=== PATIENT | female | born 1990 | race Caucasian/White ===

== ENCOUNTER 2020-01-30 16:22 | Observation (INO) | payer MEDICAID ==
[~2020-01-30] VITALS: Ht 147.3 cm; Wt 81.2 kg
[2020-01-30 17:35] LABS: BILIRUBIN,URINE NEGATIVE (NEGATIVE); BLOOD, URINE NEGATIVE (NEGATIVE); COLOR,URINE YELLOW (YELLOW); GLUCOSE,URINE NEGATIVE (NEGATIVE); KETONES,URINE NEGATIVE (NEGATIVE); LEUKOCYTE ESTERASE ,URINE NEGATIVE (NEGATIVE); NITRITE, URINE NEGATIVE (NEGATIVE); PH,URINE 6.5 (5.0-8.0); PROTEIN URINE NEGATIVE (NEGATIVE)
[2020-01-30 17:43] LABS: CLARITY/URINE SLIGHTLY HAZY (CLEAR)
== END 2020-01-30 18:00 | disposition home or self-care (01) ==
LOC: SPU 16:22
PROVIDERS: ADMIT Obstetrics & Gynecology; ATTEND Obstetrics & Gynecology
DX: O26.893 Other specified pregnancy related conditions, third trimester (principal); R51.9 Headache, unspecified; H55.89 Other irregular eye movements; Z3A.35 35 weeks gestation of pregnancy
CPT/HCPCS: 81002; 81003; G0378

== ENCOUNTER 2020-02-08 00:20 | Observation (INO) | payer MEDICAID, SELFPAY ==
[~2020-02-08] VITALS: Ht 147.3 cm; Wt 80.3 kg
[2020-02-08] MEDS ORDERED: TERBUTALINE SULFATE 1 MG/ML VIAL SUBCUT PRN (01:45)
[2020-02-08] MEDS ORDERED: MORPHINE SULFATE 10 MG/ML VIAL IVP PRN (01:45)
[2020-02-08] MEDS: LR 1,000 ML IV SCH ×2 (02:00→07:00)
[2020-02-08] MEDS ORDERED: BETAMET ACET/BETAMET NA PH 30 MG/5 ML VIAL IM ONE ×2 (08:30→09:14)
[2020-02-08] MEDS ORDERED: ACETAMINOPHEN 500 MG TABLET ONE (10:08)
[2020-02-08] MEDS ORDERED: ACETAMINOPHEN 500 MG TABLET PO PRN (10:15)
[2020-02-08] MEDS ORDERED: TEMAZEPAM 15 MG CAPSULE PO PRN (21:00)
[2020-02-09] MEDS: LR 1,000 ML IV SCH (01:17)
[2020-02-09] MEDS ORDERED: BETAMET ACET/BETAMET NA PH 30 MG/5 ML VIAL IM ONE (09:30)
== END 2020-02-09 09:30 | disposition home or self-care (01) ==
LOC: SPU 00:20
PROVIDERS: ADMIT Obstetrics & Gynecology; ATTEND Obstetrics & Gynecology
DX: O62.9 Abnormality of forces of labor, unspecified (principal); Z20.828 Contact with and (suspected) exposure to other viral communicable diseases; O99.513 Diseases of the respiratory system complicating pregnancy, third trimester; J45.909 Unspecified asthma, uncomplicated; O99.343 Other mental disorders complicating pregnancy, third trimester; F41.9 Anxiety disorder, unspecified; Z30.2 Encounter for sterilization; Z87.74 Personal history of (corrected) congenital malformations of heart and circulatory system; Z87.59 Personal history of other complications of pregnancy, childbirth and the puerperium; Z3A.36 36 weeks gestation of pregnancy
CPT/HCPCS: 59025; 81002; 96360; 96361 ×2; 96372 ×2; G0378; J0702; J7120 ×2; U0003; J3105

== ENCOUNTER 2020-02-11 04:35 | Inpatient (IN) | payer MEDICAID, SELFPAY ==
[~2020-02-11] VITALS: Ht 148.6 cm; Wt 80.7 kg
[2020-02-11] MEDS ORDERED: CEFAZOLIN 2 GM IVPB PREMIX 50 ML IV ONE (05:00)
[2020-02-11] MEDS ORDERED: LR 1,000 ML IV SCH ×2 (05:00→08:45)
[2020-02-11 05:02] VITALS: BP_SYST 114
[2020-02-11 07:18] LABS: BILIRUBIN,URINE NEGATIVE (NEGATIVE); BLOOD, URINE NEGATIVE (NEGATIVE); CLARITY/URINE CLEAR (CLEAR); COLOR,URINE YELLOW (YELLOW); GLUCOSE,URINE NEGATIVE (NEGATIVE); KETONES,URINE NEGATIVE (NEGATIVE); LEUKOCYTE ESTERASE ,URINE NEGATIVE (NEGATIVE); NITRITE, URINE NEGATIVE (NEGATIVE); PH,URINE 6.5 (5.0-8.0); PROTEIN URINE NEGATIVE (NEGATIVE); UROBILINOGEN,URINE 0.2 (0.2-1.0)
[2020-02-11 07:40] LABS: CALCIUM 8.5 mg/dL (8.4-11.0); CREATININE 0.47 mg/dL (0.55-1.30); POTASSIUM 3.9 mmol/L (3.5-5.1)
[2020-02-11 07:45] LABS: ALBUMIN 2.5 g/dL (3.4-4.8); TOTAL BILIRUBIN 0.2 mg/dL (0.0-1.0)
[2020-02-11 07:46] LABS: BASOPHILS % (AUTO) 0.2 % (0.0-2.0); EOSINOPHILS % (AUTO) 0.5 % (0.0-4.0); HEMATOCRIT 29.2 % (36-48); HEMOGLOBIN 9.7 g/dL (12.0-16.0); LYMPHOCYTES # (AUTO) 1.4 K/uL (1.0-5.5); LYMPHOCYTES % (AUTO) 19.5 % (20.5-51.5); MEAN CORPUSCULAR HEMOGLOBIN 27 pg (27-31); MEAN CORPUSCULAR HGB CONC 33 % (32-36); MEAN CORPUSCULAR VOLUME 82 fL (79.0-98.0); MONOCYTES # (AUTO) 0.7 K/uL (0.0-1.0); NEUTROPHILS # (AUTO) 4.9 K/uL (1.8-7.7); NEUTROPHILS % (AUTO) 69.8 % (40.0-70.0); PLATELET COUNT (AUTO) 194 K/uL (130-430); RED BLOOD CELL COUNT(AUTO) 3.56 MIL/uL (4.2-6.2); RED CELL DISTRIBUTION WIDTH 14.1 % (9.0-15.0); WHITE BLOOD COUNT (AUTO) 7.1 K/uL (4.8-10.8)
[2020-02-11] MEDS ORDERED: LR 1,000 ML IV.SOLN IV ONE (08:25)
[2020-02-11] MEDS ORDERED: OXYTOCIN 10 UNIT/ML VIAL IV ONE (08:25)
[2020-02-11] MEDS ORDERED: NS IRRIG SOLN 1000 ML IR ONE (08:25)
[2020-02-11] MEDS ORDERED: ONDANSETRON HCL 4 MG/2 ML VIAL IVP ONE (08:25)
[2020-02-11] MEDS ORDERED: MIDAZOLAM HCL 5 MG/5 ML VIAL IVP ONE (08:25)
[2020-02-11] MEDS ORDERED: KETOROLAC TROMETHAMINE 30 MG VIAL IVP ONE (08:25)
[2020-02-11] MEDS ORDERED: METOCLOPRAMIDE HCL 10 MG/2 ML VIAL IVP ONE (08:25)
[2020-02-11] MEDS ORDERED: ANUSOL 1 EA SUPP.RECT (PREPARATION H) RC PRN (08:45)
[2020-02-11] MEDS ORDERED: OXYTOCIN/0.9 % SODIUM CHLORIDE 1,000 ML IV ONE (08:45)
[2020-02-11] MEDS ORDERED: OXYCODONE/ACETAMINOPHEN 5-325 TABLET PO PRN (08:45)
[2020-02-11] MEDS ORDERED: TEMAZEPAM 15 MG CAPSULE PO PRN (08:45)
[2020-02-11] MEDS ORDERED: DIPH-TET-PERTUS Vaccine 0.5 ML VIAL (ADACEL) I.M. PRN (08:45)
[2020-02-11] MEDS ORDERED: HYDROcodone/ACETAMIN 5-325 MG TAB (NORCO/ VICODIN) PO PRN (08:45)
[2020-02-11] MEDS ORDERED: MEASLES,MUMPS&RUBELLA VACC/PF 12500 UNIT/0.5 ML VIAL SUBQ PRN (08:45)
[2020-02-11] MEDS ORDERED: SENNOSIDES/DOCUSATE SODIUM 1 TAB TABLET(SENOKOT-S) PO PRN (08:45)
[2020-02-11] MEDS ORDERED: BISACODYL 10 MG/SUPPOSITORY RC PRN (08:45)
[2020-02-11] MEDS ORDERED: LANOLIN 7 GM OINT. TP PRN (08:45)
[2020-02-11] MEDS ORDERED: RHO(D) IMMUNE GLOBULIN/MALTOSE 1500 UNITS/1.3 ML (WINHRO) IM PRN (08:45)
[2020-02-11] MEDS ORDERED: ONDANSETRON HCL 4 MG/2 ML VIAL IVP PRN (09:00)
[2020-02-11] MEDS ORDERED: KETOROLAC TROMETHAMINE 60 MG/2 ML VIAL IM PRN (09:00)
[2020-02-11 09:31] VITALS: BP_SYST 107
[2020-02-11] MEDS: DIPHENHYDRAMINE INJ 50 MG/ML VIAL IVP PRN ×2 (11:08→22:11)
[2020-02-11] MEDS ORDERED: DIPHENHYDRAMINE INJ 50 MG/ML VIAL ONE (13:02)
[2020-02-12] MEDS: IBUPROFEN 600 MG TABLET PO SCH ×4 (00:19→17:51)
[2020-02-12] MEDS: OXYCODONE/ACETAMINOPHEN 5-325 TABLET PO PRN ×4 (03:02→22:00)
[2020-02-12] MEDS: DOCUSATE SODIUM 100 MG CAPSULE PO PRN ×2 (03:02→22:01)
[2020-02-12] MEDS: SIMETHICONE 80 MG TAB.CHEW PO PRN ×2 (03:02→22:01)
[2020-02-12 07:08] LABS: BASOPHILS % (AUTO) 0.2 % (0.0-2.0); EOSINOPHILS % (AUTO) 0.3 % (0.0-4.0); LYMPHOCYTES # (AUTO) 1.5 K/uL (1.0-5.5); MEAN CORPUSCULAR HEMOGLOBIN 27 pg (27-31); MEAN CORPUSCULAR HGB CONC 33 % (32-36); MEAN CORPUSCULAR VOLUME 82 fL (79.0-98.0); MONOCYTES # (AUTO) 0.9 K/uL (0.0-1.0); MONOCYTES % (AUTO) 9.4 % (1.7-9.3); NEUTROPHILS # (AUTO) 6.9 K/uL (1.8-7.7); NEUTROPHILS % (AUTO) 74.1 % (40.0-70.0); PLATELET COUNT (AUTO) 168 K/uL (130-430); RED BLOOD CELL COUNT(AUTO) 3.29 MIL/uL (4.2-6.2); RED CELL DISTRIBUTION WIDTH 14.1 % (9.0-15.0); WHITE BLOOD COUNT (AUTO) 9.4 K/uL (4.8-10.8)
[2020-02-13] MEDS: IBUPROFEN 600 MG TABLET PO SCH ×3 (00:07→11:54)
[2020-02-13] MEDS: OXYCODONE/ACETAMINOPHEN 5-325 TABLET PO PRN (03:59)
[2020-02-13] MEDS: SIMETHICONE 80 MG TAB.CHEW PO PRN (04:00)
[2020-02-14 18:10] LABS: FTA-Ab (T PALLIDUM) Non Reactive (Non Reactive)
== END 2020-02-13 13:30 | disposition home or self-care (01) | DRG 540 ==
LOC: OBSVTOIN 04:35 → SPU 04:35
PROVIDERS: ADMIT Obstetrics & Gynecology; ATTEND Obstetrics & Gynecology
PROC: 10D00Z1 Extraction of Products of Conception, Low, Open Approach (ICD-10-PCS; principal; 2020-02-11 08:00)
DX: O99.344 Other mental disorders complicating childbirth (principal); O34.211 Maternal care for low transverse scar from previous cesarean delivery; O99.52 Diseases of the respiratory system complicating childbirth; O60.13X0 Preterm labor second trimester with preterm delivery third trimester, not applicable or unspecified; O99.214 Obesity complicating childbirth; F41.9 Anxiety disorder, unspecified; J45.909 Unspecified asthma, uncomplicated; E66.9 Obesity, unspecified; Z37.0 Single live birth; Z3A.36 36 weeks gestation of pregnancy; Z83.3 Family history of diabetes mellitus
CPT/HCPCS: 36415; 80053; 81003; 85025; 86592; 86780; 86886; 86900; 86901; 94760; J0690; J1200; J1885; J2250; J2405; J2590; J2765; J7120

== ENCOUNTER 2020-10-06 01:57 | Emergency (ER) | payer OTHER, SELFPAY ==
[~2020-10-06] VITALS: Ht 149.9 cm; Wt 72.6 kg
[2020-10-06 02:00] VITALS: BP_SYST 124
--- NOTE | 2020-10-06 02:20 | NUR ---
Pt walked in c/o allergic reaction. She reports being seen earlier at [facility] where she was given medications and discharged. She reports the hives coming back and starting to go up towards her face again. She denies any new exposures, foods, medications, lotions, etc. Denies any SOB, CP.
--- NOTE | 2020-10-06 02:20 | NUR ---
Placed in room 4 . Placed on monitor worker, blood pressure machine and pulse oximeter. To gown for exam. Side rails up. Report given to CHRISTOPHER SMITH.
[2020-10-06] MEDS ORDERED: PROCHLORPERAZINE EDISYLATE 10 MG/2 ML VIAL IVP ONE (02:45)
[2020-10-06] MEDS ORDERED: EPINEPHrine 1 MG/ML VIAL IM ONE (02:45)
[2020-10-06] MEDS ORDERED: DIPHENHYDRAMINE INJ 50 MG/ML VIAL IVP ONE (02:45)
[2020-10-06] MEDS ORDERED: NACL 0.9% 1,000 ML IV ONE (02:45)
[2020-10-06] MEDS ORDERED: FAMOTIDINE PF 20 MG/2 ML VIAL IVP ONE (02:45)
[2020-10-06 02:46] LABS: BASOPHILS % (AUTO) 0.1 % (0.0-2.0); HEMATOCRIT 37.8 % (36-48); HEMOGLOBIN 12.6 g/dL (12.0-16.0); LYMPHOCYTES # (AUTO) 0.7 K/uL (1.0-5.5); LYMPHOCYTES % (AUTO) 8.7 % (20.5-51.5); MEAN CORPUSCULAR HEMOGLOBIN 28 pg (27-31); MEAN CORPUSCULAR HGB CONC 33 % (32-36); MEAN CORPUSCULAR VOLUME 84 fL (79.0-98.0); MONOCYTES # (AUTO) 0.3 K/uL (0.0-1.0); MONOCYTES % (AUTO) 3.1 % (1.7-9.3); NEUTROPHILS # (AUTO) 7.2 K/uL (1.8-7.7); NEUTROPHILS % (AUTO) 88.1 % (40.0-70.0); PLATELET COUNT (AUTO) 241 K/uL (130-430); RED BLOOD CELL COUNT(AUTO) 4.53 MIL/uL (4.2-6.2); RED CELL DISTRIBUTION WIDTH 13.1 % (9.0-15.0); WHITE BLOOD COUNT (AUTO) 8.2 K/uL (4.8-10.8)
[2020-10-06] MEDS ORDERED: EPINEPHrine 1 MG/ML VIAL ONE (03:05)
[2020-10-06] MEDS ORDERED: FAMOTIDINE PF 20 MG/2 ML VIAL ONE (03:11)
[2020-10-06 03:21] LABS: CALCIUM 8.9 mg/dL (8.4-11.0); CREATININE 0.79 mg/dL (0.55-1.30)
[2020-10-06 03:25] LABS: ALBUMIN 3.8 g/dL (3.4-4.8); TOTAL BILIRUBIN 0.4 mg/dL (0.0-1.0)
--- NOTE | 2020-10-06 03:30 | NUR ---
Patient resting quietly. No acute distress noted.
--- NOTE | 2020-10-06 03:40 | NUR ---
Ruperto gomez in [facility] - 10/06/20 at 0340 by [email or web address] Patient transported to radiology via [facility], accompanied by mother and actimize architect.
--- NOTE | 2020-10-06 04:49 | NUR ---
Patient resting quietly. No acute distress noted. Pt reports feeling better, hives appear to have resolved.
--- NOTE | 2020-10-06 05:00 | NUR ---
Dr. Ma at bedside updating patient.
[2020-10-06] MEDS ORDERED: PRED20TA PO (05:19)
[2020-10-06] MEDS ORDERED: CETI10CA11 PO (05:19)
[2020-10-06] MEDS ORDERED: FAMO20TA8 PO (05:19)
[2020-10-06 05:30] VITALS: BP_SYST 120
--- NOTE | 2020-10-06 05:30 | NUR ---
Patient given written and verbal discharge instructions and verbalizes understanding. ER MD discussed with patient the results and treatment provided. Patient in stable condition. ID arm band removed. IV catheter removed intact and dressing applied, no active bleeding. Rx of PEPCID, PREDNISONE, CETIRIZINE given. Patient educated on pain management and to follow up with PMD. Pain Scale 0/10. Opportunity for questions provided and answered. Medication side effect fact sheet provided.
== END 2020-10-06 05:30 | disposition home or self-care (01) ==
LOC: SED 01:57
DX: T78.40XA Allergy, unspecified, initial encounter (principal); J45.909 Unspecified asthma, uncomplicated; Z79.899 Other long term (current) drug therapy; X58.XXXA Exposure to other specified factors, initial encounter
CPT/HCPCS: 36415; 80053; 85025; 96361; 96372; 96374; 96375; 99284; J0171; J0780; J1200; J3490; J7030

== ENCOUNTER 2020-10-09 07:50 | Emergency (ER) | payer OTHER ==
[~2020-10-09] VITALS: Ht 149.9 cm; Wt 81.6 kg
[~2020-10-09 07:50] MED LIST: CETI10CA11 PO; FAMO20TA8 PO; PRED20TA PO
[2020-10-09 07:55] VITALS: BP_SYST 137
[2020-10-09] MEDS ORDERED: DIPHENHYDRAMINE INJ 50 MG/ML VIAL IM ONE (08:15)
[2020-10-09] MEDS ORDERED: EPINEPHrine 1 MG/ML AMP IM ONE (08:15)
[2020-10-09] MEDS ORDERED: predniSONE 20 MG TABLET PO ONE (08:15)
[2020-10-09] MEDS ORDERED: CETI-80 PO (09:25)
[2020-10-09] MEDS ORDERED: PRED20TA PO (09:25)
[2020-10-09 09:33] VITALS: BP_SYST 122
== END 2020-10-09 09:33 | disposition home or self-care (01) ==
LOC: SED 07:50
DX: L50.9 Urticaria, unspecified (principal); J45.909 Unspecified asthma, uncomplicated; Z79.899 Other long term (current) drug therapy
CPT/HCPCS: 96372; 99284; J0171; J1200; J7512

== ENCOUNTER 2022-02-21 19:55 | Emergency (ER) | payer OTHER ==
[~2022-02-21] VITALS: Ht 147.3 cm; Wt 72.6 kg
[~2022-02-21 19:55] MED LIST changes: +CETI-80 PO
[2022-02-21 20:39] VITALS: BP_SYST 114
--- NOTE | 2022-02-21 23:00 | NUR ---
Patient ambulatory to bed 7 for evaluation and treatment
--- NOTE | 2022-02-21 23:05 | NUR ---
Pt bib from home. CC Dyspnea related to URI cough for 45 days. Pt is Nausea with vomiting episodes x2. SOB wheezing, dizziness, headache. Pt complains of abd. pain 6/10 related to cough. Past medical hx. asthma congenital pulmonary stenosis and heart murmur.
--- NOTE | 2022-02-21 23:07 | NUR ---
ER at bedside examining patient.
[2022-02-22] MEDS ORDERED: ONDANSETRON 4 MG ODT TAB PO ONE
[2022-02-22] MEDS ORDERED: ALBUTEROL SULFATE 0.083% 2.5 MG/3 ML VIAL.NEB INH ONE
[2022-02-22] MEDS ORDERED: methylPREDNISolone SOD SUCC/PF 62.5 MG/ML VIAL IVP ONE
[2022-02-22] MEDS ORDERED: IPRATROPIUM BROM 0.5 MG/2.5 ML VIAL.NEB (ATROVENT) INH ONE
[2022-02-22] MEDS ORDERED: NACL 0.9% 1,000 ML IV ONE
[2022-02-22 00:37] LABS: BASOPHILS # (AUTO) 0.1 K/uL (0.0-0.2); BASOPHILS % (AUTO) 1.9 % (0.0-2.0); EOSINOPHILS # (AUTO) 0.4 K/uL (0.0-0.4); EOSINOPHILS % (AUTO) 5.7 % (0.0-4.0); HEMATOCRIT 35.1 % (36-48); HEMOGLOBIN 11.8 g/dL (12.0-16.0); MEAN CORPUSCULAR HEMOGLOBIN 28 pg (27-31); MEAN CORPUSCULAR HGB CONC 34 % (32-36); MEAN CORPUSCULAR VOLUME 82 fL (79.0-98.0); MONOCYTES # (AUTO) 0.5 K/uL (0.0-1.0); MONOCYTES % (AUTO) 8.5 % (1.7-9.3); NEUTROPHILS # (AUTO) 4.4 K/uL (1.8-7.7); NEUTROPHILS % (AUTO) 68.9 % (40.0-70.0); PLATELET COUNT (AUTO) 198 K/uL (130-430); RED BLOOD CELL COUNT(AUTO) 4.26 MIL/uL (4.2-6.2); RED CELL DISTRIBUTION WIDTH 12.7 % (9.0-15.0); WHITE BLOOD COUNT (AUTO) 6.4 K/uL (4.8-10.8)
[2022-02-22 01:03] LABS: ALBUMIN 3.9 g/dL (3.4-4.8); CREATININE 0.71 mg/dL (0.55-1.30); TOTAL BILIRUBIN 0.3 mg/dL (0.0-1.0)
[2022-02-22] MEDS ORDERED: KETOROLAC TROMETHAMINE 15 MG VIAL IVP ONE (01:30)
[2022-02-22] MEDS ORDERED: PRED20TA PO (02:00)
[2022-02-22] MEDS ORDERED: ALBMDI INH (02:00)
[2022-02-22] MEDS ORDERED: ONDA-8 TL (02:02)
[2022-02-22 02:40] VITALS: BP_SYST 115
--- NOTE | 2022-02-22 02:40 | NUR ---
Patient given written and verbal discharge instructions and verbalizes understanding. ER MD discussed with patient the results and treatment provided. Patient in stable condition. IV catheter removed intact and dressing applied, no active bleeding.Rx of Albuterol inh, zofran and Prednisone sent to pharmacy of choice. Patient educated on pain management and to follow up with PMD. Pain Scale 6/10. Opportunity for questions provided and answered.
== END 2022-02-22 02:40 | disposition home or self-care (01) ==
LOC: SED 19:55
DX: J06.9 Acute upper respiratory infection, unspecified (principal); J98.01 Acute bronchospasm; R05.9 Cough, unspecified; R11.10 Vomiting, unspecified; Z79.899 Other long term (current) drug therapy; Z20.822 Contact with and (suspected) exposure to COVID-19
CPT/HCPCS: 80053; 83690; 85025; 36415; 94640; 99284; 81025; 87804 ×2; 87426; 74021; 96361; 96374; 96375; J7613; Q0162; J1885; J2930; J7030